=== PATIENT | male | born 1985 | race American Indian/Alaskan Native ===

== ENCOUNTER 2017-02-02 16:32 | Emergency (ER) | payer OTHER ==
[2017-02-02 16:48] VITALS: BP 126/78
[2017-02-02] MEDS ORDERED: Lidocaine 1% 20 ML MDV INJECT ONE (16:50)
[2017-02-02] MEDS ORDERED: Bacitracin Oint 1 GM U/D Packet TOP ONE (16:50)
[2017-02-02] MEDS ORDERED: Diphtheria,Pertussis(Acell),Tetanus Vaccine 0.5 ML SDV IM ONE (16:52)
--- NOTE | 2017-02-02 16:53 | EDM.PDOC ---
[id number]: Laceration Stated Complaint: CUT FINGER AT WORK Time Seen by Provider: 02/02/17 16:58 Source: Reports: Patient, Family History Limitations: Reports: No limitations - History of Present Illness INITIAL COMMENTS - FREE TEXT/NARRATIVE: pt arrived with history of a smashing injury to the rt middle finger Timing: Reports: still present Location, Skin: Reports: upper extremity, right Known Identified Source: yes Place: home - Related Data Allergies Allergy/AdvReac Type Severity Reaction Status Date / Time No Known Allergies Allergy Verified 02/02/17 16:50 Home Meds: Ambulatory Orders Medication Instructions Recorded Confirmed NK [No Known Home Meds] 02/02/17 02/02/17 ED ROS GENERAL - Review of Systems Review Of Systems: See Below Constitutional: Reports: no symptoms HEENT: Reports: No symptoms Respiratory: Reports: No Symptoms Cardiovascular: Reports: No symptoms Endocrine: Reports: no symptoms GI/Abdominal: Reports: No symptoms : Reports: no symptoms Course - Vital Signs Last Recorded V/S: Last Vital Signs Temp 98.2 F 02/02/17 16:49 Pulse 86 02/02/17 16:49 Resp 14 02/02/17 16:49 BP 126/78 02/02/17 16:49 Pulse Ox 99 02/02/17 16:49 - Orders/Labs/Meds Orders: Active Orders 24 hr Category Date Time Status Vaccines to be Administered [RC] PER UNIT ROUTINE Care 02/02/17 16:52 Active Fingers Third Digit Rt F7 [CR] Stat Exams 02/02/17 16:57 Taken Meds: Medications Discontinued Medications Generic Name Dose Route Start Last Admin Trade Name Varsha PRN Reason Stop Dose Admin Bacitracin 1 dose 02/02/17 16:50 02/02/17 18:11 Bacitracin Oint 1 Gm TOP 02/02/17 16:51 1 dose ONETIME ONE Administration Diphtheria/Tetanus/Acell Pertussis 0.5 ml 02/02/17 16:52 02/02/17 18:11 Adacel IM 02/02/17 16:53 0.5 ml .ONCE ONE Administration Lidocaine HCl 20 ml 02/02/17 16:50 02/02/17 18:11 Xylocaine 1% INJECT 02/02/17 16:51 20 ml ONETIME ONE Administration Departure - Departure Disposition: Home, Self-Care 01 Clinical Impression: Finger laceration Qualifiers: Encounter type: initial encounter Qualified Code(s): S61.219A - Laceration without foreign body of unspecified finger without damage to nail, initial encounter Instructions: Laceration Care, Adult Referrals: PCP,None [Primary Care Provider] - Forms: ED Department Discharge Care Plan Goals: Keep wound covered and clean while healing. Sutures can be removed next Monday morning. Recheck sooner if concerns of infection or not healing satisfactorily. <Miguel Ellis - Last Filed: 02/02/17 19:41> ED EXAM, SKIN/RASH Exam: See Below Exam Limited By: No limitations General Appearance: alert, no apparent distress Respiratory/Chest: no respiratory distress Extremities: other (Patient has a 2.5 cm curved flap laceration on the pulp of the middle finger right hand. It is fairly shallow involves mostly just epidermis.) Course - Re-Assessments/Exams Free Text/Narrative Re-Assessment/Exam: 02/02/17 18:27 X-ray was negative for fracture. The laceration was anesthetized with 1% lidocaine, cleansed thoroughly with saline and 5 5-0 Ethilon sutures were used to close the wound. Topical bacitracin was applied, and bandaged, and the patient was given tetanus. Sutures can be removed in 7 or 8 days. Departure - Departure Time of Disposition: 18:51 Condition: good
--- NOTE | 2017-02-03 09:29 | CR ---
Fingers Third Digit Rt F7 HISTORY: Crush injury. COMPARISON: None FINDINGS: No fracture or foreign body seen.
== END 2017-02-02 18:51 | disposition home or self-care (01) ==
LOC: JP.ED 16:32
DX: S61.212A Laceration without foreign body of right middle finger without damage to nail, initial encounter (principal); Z23 Encounter for immunization; W22.8XXA Striking against or struck by other objects, initial encounter
CPT/HCPCS: 12001; 73140-26-F7; 73140-F7; 90471; 90715; 99283-25